=== PATIENT | male | born 1955 | race Caucasian/White ===

== ENCOUNTER 2024-02-06 10:07 | Outpatient (AMB) | payer MEDICARE, SELFPAY ==
--- NOTE | 2024-02-06 10:09 | MHC.OFFVIS ---
Vital Signs 02/06/24 10:19 Height 5 ft 11 in Weight 216 lb 11.43 oz BMI 30.2 BP 110/70 Blood Pressure Location Lt brachial Position Sitting Pulse 49 L Pulse Source Pulse Oximeter Intake Visit Reasons: Ra/ RECORDS RECEIVED Intake Note: Patient present today for RA office visit. 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 Pain in joints improved. He currently feels well. Denies joint swelling. He has minimal joint stiffness that improves with movement in the morning. Denies recent flares or requiring prednisone. He had severe MR and had a clip procedure last sunday. He feels improved SOB. Cardiology started Entresto and plavix. No recent infections. Plans to see pulmonology Dr. Whitfield next year. [facility] Surgical History (Updated 02/06/24 @ 10:26 by CASSIE Bunch) History of mitral valve repair Family History (Updated 02/06/24 @ 10:28 by CASSIE Bunch) Mother Colon cancer Rheumatoid arthritis Father Heart attack Social History (Updated 02/06/24 @ 10:28 by CASSIE Bunch) Alcohol intake: current Alcohol intake frequency: holidays/special occasions only Patient Tobacco Use Status: Never used Tobacco Physical Exam Vital Signs: Last Vital Signs Pulse 49 L 02/06/24 10:19 BP 110/70 02/06/24 10:19 BMI result Body Mass Index 30.2 Const General: healthy appearing and comfortable Resp Auscultation: rales on the right in the mid lung puckett and on the left in the mid lung pucektt Cardio Rate: regular rate Skin General skin exam: no rashes or lesions noted Extrem Other: No joint tenderness. No joint swelling. Ulnar deviations R MCP>L. Haberden's nodes present. Hip and knee ROM was not evaluated due to recent cardiac cath procedure requiring bilateral femoral access. Results Reviewed Results Reviewed: Labs from 01/2024 CBC and creatinine wnl. Assessment & Plan Assessment & Plan (1) Rheumatoid arthritis in remission: Comment: In remission on Truxima every 4 months. Code(s): M06.9 - Rheumatoid arthritis, unspecified Category: Medical Plan: Continue Truxima 1g on day 0 and 14 every 4 months. Need to process PA. Lab rx given to patient to have labs done at [facility] per patient's preference 1 week prior to next Truxima in [facility] 2023. (2) ILD (interstitial lung disease): Comment: On OFEV and Truxima. Stable. Code(s): J84.9 - Interstitial pulmonary disease, unspecified Category: Medical Plan: Continue Truxima 1g on day 0 and 14 every 4 months Follow-up with pulmologist Dr. Whitfield [facility] in 2024. Plan . Orders: Orders Alanine Aminotransferase 1 Month M06.9 - Rheumatoid arthritis, unspecified C Reactive Protein 1 Month M06.9 - Rheumatoid arthritis, unspecified Aspartate Amino Transferase 1 Month M06.9 - Rheumatoid arthritis, unspecified Erythrocyte Sedimentation Rate 1 Month M06.9 - Rheumatoid arthritis, unspecified Creatinine 1 Month M06.9 - Rheumatoid arthritis, unspecified Complete Blood Count Auto Diff 1 Month M32.9 - Systemic lupus erythematosus, unspecified Coding Level of Care Code Est Pt Level 4 (49587) Complex EM visit Add On G2211 Diagnoses Rheumatoid arthritis in remission M06.9 ILD (interstitial lung disease) J84.9
[2024-02-06 10:19] VITALS: BP 110/70; PULSE 49; BMI 30.2
== END 2024-02-06 11:12 | disposition home or self-care (01) ==
PROVIDERS: PCP Internal Medicine; Visit Provider Internal Medicine Rheumatology
DX: M06.9 Rheumatoid arthritis, unspecified (principal); J84.9 Interstitial pulmonary disease, unspecified
CPT/HCPCS: 99214; G2211

== ENCOUNTER → 2024-02-06 10:07 | Outpatient (BNVA) | payer MEDICARE, SELFPAY | PROVIDERS: PCP Internal Medicine; Visit Provider Internal Medicine Rheumatology | DX: M06.9 Rheumatoid arthritis, unspecified (principal); M32.9 Systemic lupus erythematosus, unspecified; J84.9 Interstitial pulmonary disease, unspecified; Z79.899 Other long term (current) drug therapy | CPT/HCPCS: 99212 ==

== ENCOUNTER 2024-05-08 09:29 | Outpatient (AMB) | payer MEDICARE, SELFPAY ==
--- NOTE | 2024-05-08 09:47 | A.OFFVIS_ITS ---
Vital Signs 05/08/24 09:48 Height 5 ft 11 in Weight 208 lb 8 oz BMI 29.1 BP 110/70 Blood Pressure Location Lt brachial Position Sitting Pulse 66 Pulse Source Pulse Oximeter Pulse Oximetry (%) 95 Oxygen Delivery Method Room Air Intake Visit Reasons: RA Intake Note: Patient presents follow up RA Allergies sulfasalazine Allergy (Mild, Verified 05/08/24 09:51) Unknown HPI HPI RA: Details: Minimal morning stiffness. No joint swelling or pain. No recent infections. He feels great. He has been exercising more regularly without discomfort or dyspnea. He reports that his oxygen level has not dropped. He is currently experiencing diarrhea, which was started last 11/13/2023 around the time that he was started on atorvastatin. He recently had a visit with his traffic coordinator who recommended to hold atorvastatin. 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 from 150 mg b.i.d. and most recently decreased it to 100 mg daily to see if it will reduce his diarrhea. [facility] Surgical History History of mitral valve repair Family History Mother Colon cancer Rheumatoid arthritis Father Heart attack Social History Alcohol intake: current Alcohol intake frequency: holidays/special occasions only Patient Tobacco Use Status: Never used Tobacco Review of Systems Const All systems reviewed & are unremarkable except as noted in HPI and below Physical Exam Vital Signs: Last Vital Signs Pulse 66 05/08/24 09:48 BP 110/70 05/08/24 09:48 Pulse Ox 95 05/08/24 09:48 Oxygen Delivery Method Room Air 05/08/24 09:48 BMI result Body Mass Index 29.1 Const Other: General: Comfortable CVS: RRR Respiratory: Inspiratory crackles mid lung puckett. Decreased breath sounds Skin: No lesions seen MSK: No tenderness of any joints. Good range of motion of upper extremities and lower extremities. No synovitis. Assessment & Plan Assessment & Plan (1) Rheumatoid arthritis in remission: Comment: Seropositive (CCP and RF). In remission on Truxima every 4 months. He recently had infusions at [facility] and has a payment of over a 1000 dollars for his last two infusions from 02/2024, which is not affordable for patient. [facility] is in network for patient. He previously never had co-payments on Truxima. Rheumatology history: Contraindication to methotrexate and leflunomide due to interstitial lung disease. Failed hydroxychloroquine 05/17/2020 to 02/2022 and Mycophenolate mofetil 04/2021 to 09/2021. Low-dose prednisone benefits inflammatory arthritis, fatigue and dyspnea. Truxima 1g Day 0 and Day 14 started 09/2021 initially every 6 months then increased frequency to every 4 months for control of inflammatory arthritis. Truxima biosimilar to Rituximab is indicated for rheumatoid arthritis and interstitial lung disease associated with rheumatoid arthritis. Code(s): M06.9 - Rheumatoid arthritis, unspecified Category: Medical Plan: Continue Truxima 1g on day 0 and 14 every 4 months. He will obtain labs 1 week prior to Truxima infusions. He does not require labs on the day of Truxima infusions. Drug monitoring on Truxima is due every 3-4 months. My staff will look further into why patient had a payment for his most recent Truxima infusions RTC 3 months (2) ILD (interstitial lung disease): Comment: On OFEV and Truxima. Stable. Code(s): J84.9 - Interstitial pulmonary disease, unspecified Category: Medical Plan: Continue Truxima 1g on day 0 and 14 every 4 months Follow-up with pulmologist Dr. Roseann YOUNG for ILD monitoring/Ofev. I have requested him to communicate with pulmonology office to have PFTs done as it has been over a year per patient. Plan . 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) use of unspecified immunomodulators and immunosuppressants Creatinine 2 Months Z79.60 - long-term (current) use of unspecified immunomodulators and immunosuppressants Aspartate Amino Transferase 2 Months Z79.60 - local company intermodal truck driver (current) use of unspecified immunomodulators and immunosuppressants C Reactive Protein 2 Months M06.9 - Rheumatoid arthritis, unspecified Erythrocyte Sedimentation Rate 2 Months M06.9 - Rheumatoid arthritis, unspecified Coding Level of Care Code Est Pt Level 4 (63213) Complex EM visit Add On G2211 Diagnoses Rheumatoid arthritis in remission M06.9 ILD (interstitial lung disease) J84.9
[2024-05-08 09:48] VITALS: BP 110/70; PULSE 66; O2SAT 95; BMI 29.1
--- OUTSIDE RECORDS SUMMARY | 2024-05-08 09:53 | XMS_ITS | Continuity of Care Document ---
Author Organization [employer] Address [address] [place] [id number]- Support Name Relationship Address Phone JUNIOR, BABAK Personal Relationship Unknown Unavailable JUNIOR, BABAK Personal Relationship Unknown Unavailable JUNIOR, BABAK Personal Relationship Unknown Unavailable JUNIOR, BABAK Personal Relationship Unknown Unavailable JUNIOR, BABAK Personal Relationship Unknown Unavailable JUNIOR, BBAAK Personal Relationship Unknown Unavailable JUNIOR, BABAK Personal Relationship Unknown Unavailable JUNIOR, BABAK Personal Relationship Unknown Unavailable JUNIOR, BABAK spouse Unknown Unavailab le JNUIOR, BABAK Personal Relationship Unknown Unavailable JUNIOR, BABAK Personal Relationship Unknown Unavailable JUNIOR, BABAK Personal Relationship Unknown Unavailable JUNIOR, BABAK G Personal Relationship Unknown Unavailable JUNIOR, BABAK Personal Relationship Unknown Unavailable JUNIOR, BABAK Personal Relationship Unknown Unavailable JUNIOR, BABAK Personal Relationship Unknown Unavailable JUNIOR, BABAK Personal Relationship Unknown Unavailable JUNIOR, BABAK G Personal Relationship Unknown Unavailable JUINOR, BABAK Personal Relationship Unknown Unavailable JUNIOR, BABAK G Personal Relationship Unknown Unavailable JUNIOR, BABAK Personal Relationship Unknown Unavailable JUNIOR, BABAK Personal Relationship Unknown Unavailable JUNIOR, BABAK Personal Relationship Unknown Unavailable JUNIOR, BABAK Personal Relationship Unknown Unavailable JUNIOR, BABAK Personal Relationship Unknown Unavailable JUNIOR, BABAK G Personal Relationship Unknown Unavailable JUNIOR, BABAK Personal Relationship Unknown Unavailable JUNIOR, BABAK Personal Relationship Unknown Unavailable JUNIOR, BABAK Personal Relationship Unknown Unavailable JUNIOR, BABAK G Personal Relationship Unknown Unavailable JUNIOR, BABAK Personal Relationship Unknown Unavailable JUNIOR, BABAK Personal Relationship Unknown Unavailable JUNIOR, BABAK Personal Relationship Unknown Unavailable JUNIOR, BABAK Personal Relationship Unknown Unavailable JUNIOR, BABAK Personal Relationship Unknown Unavailable JUNIOR, BABAK Personal Relationship Unknown Unavailable JUNIOR, BABAK Personal Relationship Unknown Unavailable JUNIOR, BABAK Personal Relationship Unknown Unavailable JUNIOR, BABAK Personal Relationship Unknown Unavailable Care Team Providers Care Cyber Reverse Engineer Name Role Phone Murray Richardson MD Primary Care Physician [phone] Encounter [facility] [place] [place] [id number] Date(s): 02/20/24 - 04/28/[address] [address] Encounter Diagnosis Nonrheumatic mitral valve disorder, unspecified(Final) - Presence of prosthetic heart valve(Final) - Discharge Disposition: A-D/C Home Attending Physician: David Cortes MD Admitting Physician: David Cortes MD Referring Physician: David Cortes MD Encounter Type: Disch Recurring OP Allergies, Adverse Reactions, Alerts No Known Medication Allergies Immunizations Given and Recorded Vaccine Date Status Refusal Reason SARS-CoV-2(COVID-19)mRNA-LNP vac([id number]) 02/26/23 Recorded RSV vaccine preF3, recombinant 12/18/22 Recorded influenza virus vaccine, inactivated 12/18/22 Zachary rded influenza virus vaccine, inactivated 12/05/21 Zachary rded influenza virus vaccine, inactivated 12/07/20 Zachary rded influenza virus vaccine, inactivated 03/11/18 Zachary rded influenza virus vaccine, inactivated 01/05/17 Zachary rded influenza virus vaccine, inactivated 12/23/14 Zachary rded [id number] 12y+ bivalent booster vax 12/05/21 Recorded SARS-CoV-2 (COVID-19) mRNA BNT-162b2 vac 11/18/20 Recorded SARS-CoV-2 (COVID-19) mRNA BNT-162b2 vac 05/26/20 Recorded SARS-CoV-2 (COVID-19) mRNA BNT-162b2 vac 05/05/20 Recorded SARS-CoV-2 (COVID-19) mRNA-1273 vaccine 11/08/20 R ecorded zoster vaccine, inactivated 03/12/19 Recorded pneumococcal 23-valent vaccine 11/05/13 Given Medications aspirin 81 mg oral delayed release tablet 81 mg, 1, tablet, By Mouth, Daily, # 90 tablet, Refills 0, Tot. Refills 0, Maintenance, 09/26/23 3:24:00 PM EDT, Route to Pharmacy Electronically, [facility] #[id number], Partial fill upon patientrequest if the prescription is for a schedule II opioid drug., 180, cm, 09/26/23 13:59:00 EDT, Height, 97, kg, 06/18/23 8:07:00 EDT, Dry Weight Start Date: 09/26/23 Status: Ordered Quantity: 90.0 Unit: tablet Repeat number: 1 atorvastatin 80 mg oral tablet 1 tablet = 80 mg, By Mouth, Daily, stop simvastatin, # 90 tablet, 3 Refills, Maintenance, 12/17/23 10:30:00 AM EDT, Tablet, [facility] #[id number], Partial fill upon patient request if the prescription isfor a schedule II opioid drug., 180, cm, 12/13/23 12:05:00 EDT, Height, 97.5, kg, 12/13/23 11:58:00EDT, Dry Weight Start Date: 12/17/23 Status: Ordered Quantity: 90.0 Unit: tablet Repeat number: 4 calcium carbonate 600 mg oral tablet 1 tablet = 600 mg, By Mouth, Daily, 0 Refills, Maintenance, 06/18/23 8:19:00 AM EDT, Partial fill upon patient request if the prescription is for a schedule II opioid drug. Start Date: 06/18/23 Status: Ordered Repeat number: 1 Claritin 10 mg oral tablet 1 tablet = 10 mg, By Mouth, Daily, 0 Refills, Maintenance, 11/18/12 7:31:01 AM EDT Start Date: 11/18/12 Status: Ordered Repeat number: 1 Flomax 0.4 mg oral capsule 0.4 mg, 1, capsule, By Mouth, Daily, # 30 capsule, Refills 0, Maintenance, 02/27/19 9:35:15 AM EST Start Date: 02/27/19 Status: Ordered Quantity: 30.0 Unit: capsule Repeat number: 1 Flonase 50 mcg/inh nasal spray 2 sprays, Daily, 0 Refills, Maintenance, 07/10/19 1:22:00 PM EDT Start Date: 07/10/19 Status: Ordered Repeat number: 1 Lasix 40 mg oral tablet 40 mg, 1, tablet, By Mouth, Daily, # 90 tablet, Refills 1, Tot. Refills 1, Maintenance, 02/04/24 7:29:00 AM EST, Route to Pharmacy Electronically, [facility] #[id number], Partial fill upon patient request if the prescription is for a schedule II opioid drug., 180.34, cm, 02/02/24 7:33:00 EST, Height, 97.5, kg, 02/01/24 18:06:00 EST, Dry Weight Start Date: 02/04/24 Status: Ordered Quantity: 90.0 Unit: tablet Repeat number: 2 metoprolol 25 mg oral tablet 25 mg, 1, tablet, By Mouth, Daily, extendeed release, # 90 tablet, Refills 1, Tot. Refills 1, Maintenance, 04/09/24 4:15:00 PM EST, Route to Pharmacy Electronically, [facility], Partial fill upon patient request if the prescription is for a schedule II opioid drug., 180.34, cm, 04/08/24 9:16:00 EST, Height, 97.5, kg, 02/01/24 18:06:00 EST, Dry Weight Start Date: 04/09/24 Status: Ordered Quantity: 90.0 Unit: tablet Repeat number: 2 Ofev 100 mg oral capsule 1 capsule = 100 mg, By Mouth, Every 12 hours, with food, # 60 capsule, 5 Refills, Maintenance, 04/08/24 9:42:00 AM EST, Capsule, [facility], Partial fill upon patient request if the prescription is for a schedule II opioid drug., 180.34, cm, 04/08/24 9:16:00 EST, Height, 97.5, kg, 18:06:00 EST, Dry Weight Start Date: 04/08/24 Stop Date: 10/05/24 Status: Ordered Quantity: 60.0 Unit: capsule Repeat number: 6 pantoprazole 40 mg oral delayed release tablet 1 tablet = 40 mg, By Mouth, Daily, # 90 tablet, 3 Refills, Maintenance, 12/06/23 4:51:00 PM EDT, EC Tablet, 180, cm, 12/06/23 14:39:00 EDT, Height, 97.5, kg, 12/06/23 14:39:00 EDT, Dry Weight Start Date: 12/06/23 Stop Date: 11/30/24 Status: Ordered Quantity: 90.0 Unit: tablet Repeat number: 4 Plavix 75 mg oral tablet 75 mg, 1, tablet, By Mouth, Daily, for 3 months, # 90 tablet, Refills 0, Tot. Refills 0, Maintenance, 02/01/24 5:22:00 PM EST, Route to Pharmacy Electronically, [facility], Partial fill upon patient request if the prescription is for a schedule II opioid drug., 180.34, cm, 02/01/24 17:1 9:00 EST, Height, 97.5, kg, 12/13/23 11:58:00 EDT, Dry Weight Start Date: 02/01/24 Status: Ordered Quantity: 90.0 Unit: tablet Repeat number: 1 sacubitril-valsartan 49 mg-51 mg oral tablet 1 tablet, By Mouth, 2 times a day, # 180 tablet, 0 Refills, Maintenance, 04/09/24 4:15:00 PM EST, [facility], Partial fill upon patient request if the prescription is for a schedule II opioiddrug., 1 tablet By Mouth 2 times a day, 180.34, cm, 04/08/24 9:16:00 EST, Height, 97.5, kg, 02/01/24 18:06:00 EST, Dry Weight Start Date: 04/09/24 Status: Ordered Quantity: 180.0 Unit: tablet Repeat number: 1 Truxima Truxima, 0 Refills, Maintenance, Infusion, 04/18/22 9:23:00 AM EST Start Date: 04/18/22 Status: Ordered Repeat number: 1 Vitamin B12 0 Refills, Maintenance, 11/07/23 3:00:00 PM EDT, Partial fill upon patient request if the prescription is for a schedule II opioid drug. 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 uses a vape pen daily.. Sex Sex Representation Male (finding) Implantable Device List Procedure Provider Procedure Date Device Type Site Repair Ectropian Bilateral William Rios MD 08/09/17 Unknown Eye Left Device Identifier Serial Number Lot or Batch Number Manufacturing Date Expiration Date Distinct Identification Code MRI Safety Implantable Status Assigning Authority Unknown [id number] Unknown 11/23/18 Unknown Unknown Active Unknown Note * Event Display: Cardiac Rehab Telemetry Report Authored Date: * Event Display: Cardiac Rehab Telemetry Report Authored Date: * Event Display: Cardiac Rehab Telemetry Report Authored Date: Patient Care team information Care Team Personnel Name: Shona Trejo NP Position: [facility] PCO Associate Professional Member Role: Primary Care Nurse Address: [address] [place] [id number] Telecom: Name: Irasema Puckett RN Position: [facility] SN RN Member Role: Primary Care Nurse Name: Kerrie Francis RN Position: [facility] RN Member Role: Primary Care Nurse Name: Jose Nowak RN Position: [facility] RN Member Role: Primary Care Nurse Name: Murray Richardson MD Position: [facility] Outreach Member Role: PCP Address: [address] [place] [id number] Telecom: Name: Nilay Arvizu RN Position: [facility] RN Member Role: Primary Care Nurse Care Team Related Persons Name: BABAK PACHECO Insurance Providers Guarantor name: JOSEPHINE PACHECO Health Plan Information #: 1 Payer: [facility] MEDICARE ADV PPO Member Number: [id number] Policy Number: NA Group Number: [id number] Health Plan Information #: 2 Payer: [facility] MEDICARE ADV PPO Member Number: [id number] Policy Number: NA Group Number: [id number]
--- OUTSIDE RECORDS SUMMARY | 2024-05-08 09:54 | XMS_ITS | Continuity of Care Document ---
Author Organization [facility] Address [address] [facility] [address] [place] [address] Insurance Providers Payer Plan Claims Address Claims Phone Policy Number Group Number Relation Employer Guarantor Name Guarantor Guarantor Address Guarantor Phone [facility] MEDICA RE FFS [facility] MEDIC ARE FFS [facility] MEDICARE ADVANTAG E, [address] [address], [place] [address] tel:[phone] Self Shahram Torrezau [address], [address], [place] [address] [place] [id number] Self Shahram Jean-Baptiste [address], [address], [place] [id number] Problems Condition ICD9 code ICD10 code SNOMED code Start Date End Date S tatus Encounter for screening for other metabolic disorders Z13.228 Results Test Value / Unit Interpretation Reference Ran Comp. Metabolic Panel ([id number]]?Collected: 01/24/2024 04:13 PM?Specimen Received: 01/24/2024 05:00 AM?Source: [facility] Glucose [864174] 105 mg/dL H 70-99 mg/dL BUN [464840] 10 mg/dL 8-27 mg/dL Creatinine [691789] 1.09 mg/dL 0.76-1.2 7 mg/dL eGFR [908020] 73 mL/min/1.73 >59 mL/min/1 .73 BUN/Creatinine Ratio [066411] 9 L 10-24 Sodium [108492] 145 mmol/L H 134-144 mmol /L Potassium [535074] 4.9 mmol/L 3.5-5.2 m mol/L Chloride [007737] 104 mmol/L 96-106 mmo l/L Carbon Dioxide, Total [112095] 19 mmol/L L 20-29 mmol/L Calcium [216973] 9.0 mg/dL 8.6-10.2 mg /dL Protein, Total [815971] 6.6 g/dL 6.0- 8.5 g/dL Albumin [799395] 4.1 g/dL 3.9-4.9 g/d L Globulin, Total [149822] 2.5 g/dL 1.5 -4.5 g/dL Bilirubin, Total [547121] 0.6 mg/dL 0. 0-1.2 mg/dL Alkaline Phosphatase [724142] 206 IU/L H 44-121 IU/L AST (SGOT) [100371] 56 IU/L H 0-40 IU/ L ALT (SGPT) [194882] 72 IU/L H 0-44 IU/ L Lipid Panel[[id number]]?Collected: 01/24/2024 04:13 PM?Specimen Received: 01/24/2024 05:00 AM?Source: [facility] Cholesterol, Total [499898] 143 mg/dL 100-199 mg/dL Triglycerides [565062] 158 mg/dL H 0-149 mg/dL HDL Cholesterol [749036] 37 mg/dL L >39 mg/dL VLDL Cholesterol Berry [923174] 27 mg/dL 5-40 mg/dL LDL Chol Calc (NIH) [595632] 79 mg/dL 0-99 mg/dL Hemoglobin A1c[601493]?Collected: 01/24/2024 04:13 PM?Specimen Received: 01/24/2024 05:00 AM?Source: [facility] Hemoglobin A1c [662303] 6.5 % H 4.8- 5.6 % . Prediabetes: 5.7 - 6.4 Stephanie betes: >6.4 Glycemic control for adults with diabetes: 7.0 Allergies, adverse reactions, alerts No known allergies and adverse reactions Medications No administered medications reported Vital Signs No vital signs reported Social History No smoking Hx information available
--- OUTSIDE RECORDS SUMMARY | 2024-05-08 09:54 | XMS_ITS | Continuity of Care Document ---
Author Organization [facility] Address [facility] [place] [address]- Support Name Relationship Address Phone JUNIOR, BABAK Personal Relationship Unknown Unavailable JUNIOR, BABAK Personal Relationship Unknown Unavailable JUNIOR, BABAK Personal Relationship Unknown Unavailable JUNIOR, BABAK Personal Relationship Unknown Unavailable JUNIOR, BABAK Personal Relationship Unknown Unavailable JUNIOR, BABAK Personal Relationship Unknown Unavailable JUNIOR, BABAK Personal Relationship Unknown Unavailable JUNIOR, BABAK Personal Relationship Unknown Unavailable JUNIOR, BABAK spouse Unknown Unavailab le JUNIOR, BABAK Personal Relationship Unknown Unavailable JUNIOR, [...] Relationship Unknown Unavailable Care Team Providers Care Dam Tender Assistant Name Role Phone Dylan VANESSA, Murray Primary Care Physician [phone] Encounter [facility] [id number] Date(s): 01/30/24 - 04/26/24 [facility] [address] [place] [address] Attending Physician: David Cortes MD Admitting Physician: David Cortes MD Referring Physician: Prosper Young MD Encounter Type: Pre-OutPatient One Time Allergies, Adverse Reactions, Alerts No Known Medication Allergies Immunizations Given and Recorded Vaccine Date Status Refusal Reason SARS-CoV-2(COVID-19)mRNA-LNP vac([id number]) 02/26/23 Recorded RSV vaccine preF3, recombinant 12/18/22 Recorded influenza virus vaccine, inactivated 12/18/22 Zachary rded influenza virus vaccine, inactivated 12/05/21 Zachary rded influenza virus vaccine, inactivated 12/07/20 Zachary rded influenza virus vaccine, inactivated 03/11/18 Zachary rded influenza virus vaccine, inactivated 01/05/17 Zachary rded influenza virus vaccine, inactivated 12/23/14 Zachary rded [id number] 12y+ bivalent booster vax 12/05/21 Recorded SARS-CoV-2 [...] 3:24:00 PM EDT, [id number], Partial fill upon patientrequest if the prescription [...] Refills, Maintenance, 12/17/23 10:30:00 AM EDT, Tablet, [facility] #[id number], Partial fill upon patient request if the [...] 7:29:00 AM EST, Route to Pharmacy Electronically, [facility]/pharmacy #[id number], Partial fill upon patient request if [...] Refills, Maintenance, 04/08/24 9:42:00 AM EST, Capsule, [facility], Partial fill upon patient request [...] 5:22:00 PM EST, Route to Pharmacy Electronically, [facility], Partial fill upon patient request if [...] MRI Safety Implantable Status Assigning Authority Unknown [id number] Unknown 11/23/18 Unknown Unknown Active Unknown Patient Care team information Care Team Personnel Name: Shona Trejo NP Position: [facility] PCO Associate Professional Member Role: Primary Care Nurse Address: [address] [place] [id number] Telecom: Name: Irasema Puckett RN Position: [facility] SN RN Member Role: Primary Care Nurse Name: Kerrie Francis RN Position: [facility] RN Member Role: Primary Care Nurse Name: Jose Nowak RN Position: [facility] RN Member Role: Primary Care Nurse Name: Murray Richardson MD Position: [facility] Outreach Member Role: PCP Address: [address] [place] [address], [address] [address]: Name: Nilay Arvizu RN Position: [facility] RN Member Role: Primary Care Nurse Care Team Related Persons Name: BABAK PACHECO Insurance Providers Guarantor name: JOSEPHINE PACHEOC Health Plan Information #: 1 Payer: [facility] MEDICARE ADV PPO Member Number: [id number] Policy Number: NA Group Number: [id number] Health Plan Information #: 2 Payer: [facility] MEDICARE ADV PPO Member Number: [id number] Policy Number: NA Group Number: [id number]
== END 2024-05-08 10:21 | disposition home or self-care (01) ==
PROVIDERS: PCP Internal Medicine; Visit Provider Internal Medicine Rheumatology
DX: M06.9 Rheumatoid arthritis, unspecified (principal); J84.9 Interstitial pulmonary disease, unspecified
CPT/HCPCS: 99214; G2211

== ENCOUNTER → 2024-05-08 09:29 | Outpatient (BNVA) | payer MEDICARE, SELFPAY | PROVIDERS: PCP Internal Medicine; Visit Provider Internal Medicine Rheumatology | DX: M06.9 Rheumatoid arthritis, unspecified (principal); J84.9 Interstitial pulmonary disease, unspecified | CPT/HCPCS: 99212 ==

== ENCOUNTER 2024-07-01 10:26 | Outpatient (REF) | payer MEDICARE, SELFPAY ==
[2024-07-01 18:41] LABS: MANUAL DIFF FLAG NO
[2024-07-01 18:54] LABS: Basophils Absolute Auto 0.1 X10*3/uL (0.0-0.2); Eosinophils Absolute Auto 0.4 X10*3/uL (0.0-0.4); Eosinophils Percent Auto 5.8 % (0-4); Hematocrit 50.1 % (42.0-52.0); Hemoglobin 16.2 g/dl (14.0-18.0); Imm Gran Abs Auto 0.02 X10*3/uL (0.00-0.03); Imm Gran Pct Auto 0.3 % (0.0-0.4); Lymphocytes Absolute Auto 1.3 X10*3/uL (1.2-4.9); Lymphocytes Percent Auto 19.4 % (20-40); Mean Corpuscular HGB Conc 32.3 g/dl (31.0-36.0); Mean Corpuscular Hemoglobin 30.6 pg (27.0-33.0); Mean Corpuscular Volume 94.5 fL (80.0-98.0); Mean Platelet Volume 9.7 fL (9.4-12.4); Monocytes Absolute Auto 0.7 X10*3/uL (0.1-1.2); Monocytes Percent Auto 10.8 % (2-11); Neutrophils Absolute Auto 4.3 x10*3/uL (2.0-8.3); Neutrophils Percent Auto 62.7 % (45-73); Platelet Count 279 X10*3/uL (160-400); White Blood Count 6.9 X10*3/uL (4.8-10.8)
[2024-07-01 19:06] LABS: Alanine Aminotransferase 25 U/L (0-40); Aspartate Amino Transferase 28 U/L (5-37); C Reactive Protein 0.34 mg/dL (< or = 0.50); Estimated Glomerular Filt Rate > 60
[2024-07-01 19:38] LABS: Erythrocyte Sedimentation Rate 4 MM/HR (0-15)
== END 2024-07-01 10:27 | disposition home or self-care (01) ==
LOC: HO.HKASLDS 10:26
PROVIDERS: Visit Provider Internal Medicine Rheumatology
DX: M06.9 Rheumatoid arthritis, unspecified (principal); Z79.60 Long term (current) use of unspecified immunomodulators and immunosuppressants
CPT/HCPCS: 36415; 82565; 84450; 84460; 85025; 85652; 86140

== ENCOUNTER 2024-08-06 10:07 | Outpatient (AMB) | payer MEDICARE, SELFPAY ==
--- NOTE | 2024-08-06 10:09 | MHC.OFFVIS ---
Vital Signs 08/06/24 10:10 Height 5 ft 11 in Weight 208 lb 12.444 oz BMI 29.1 BP 140/80 H Blood Pressure Location Rt brachial Position Sitting Pulse 68 Pulse Source Pulse Oximeter Pulse Oximetry (%) 98 Oxygen Delivery Method Room Air Intake Visit Reasons: 3 Months Intake Note: Patient presents follow up RA. Allergies sulfasalazine Allergy (Mild, Verified 08/06/24 10:10) Unknown HPI HPI 3 Months: Details: No morning stiffness. No joint pain or swelling. He experiences increased shoulder pain and thumb pain before his infusion, which resolves after he receives rituximab. No infections. PFSH Surgical History History of mitral valve repair Family History Mother Colon cancer Rheumatoid arthritis Father Heart attack Social History Alcohol intake: current Alcohol intake frequency: holidays/special occasions only Patient Tobacco Use Status: Never used Tobacco Physical Exam Vital Signs: Last Vital Signs Pulse 68 08/06/24 10:10 BP 140/80 H 08/06/24 10:10 Pulse Ox 98 08/06/24 10:10 Oxygen Delivery Method Room Air 08/06/24 10:10 BMI result Body Mass Index 29.1 Const Other: General: Comfortable CVS: RRR Respiratory: Inspiratory crackles mid lung puckett. Decreased breath sounds Skin: No lesions seen MSK: No tenderness of any joints. Good range of motion of upper extremities and lower extremities. No synovitis. Assessment & Plan Assessment & Plan (1) Rheumatoid arthritis in remission: Comment: Seropositive (CCP and RF). In remission on Truxima every 4 months. Rheumatology history: Contraindication to methotrexate and leflunomide due to interstitial lung disease. Failed hydroxychloroquine 05/17/2020 to 02/2022 and Mycophenolate mofetil 04/2021 to 09/2021. Low-dose prednisone benefits inflammatory arthritis, fatigue and dyspnea. Truxima 1g Day 0 and Day 14 started 09/2021 initially every 6 months then increased frequency to every 4 months for control of inflammatory arthritis. Truxima biosimilar to Rituximab is indicated for rheumatoid arthritis and interstitial lung disease associated with rheumatoid arthritis. Code(s): M06.9 - Rheumatoid arthritis, unspecified Category: Medical Plan: Continue Truxima 1g on day 0 and 14 every 4 months. Labs for disease and drug monitoring on high-risk medication up-to-date 06/2024. He will obtain labs 1 week prior to Truxima infusions. Drug monitoring on Truxima is due every 3-4 months. RTC 3 months (2) ILD (interstitial lung disease): Comment: On OFEV prescribed by Dr. Francisco and Andrea. Stable. Code(s): J84.9 - Interstitial pulmonary disease, unspecified Category: Medical Plan: Continue Truxima 1g on day 0 and 14 every 4 months Follow-up with pulmologist Dr. Francisco [facility] for ILD monitoring/Ofev management in November. I have requested him to communicate with pulmonology office to have PFTs done prior to his follow-up appointment. I recommend PFTs 6 months to yearly for monitoring of ILD while on treatment. Plan . Orders: Orders Alanine Aminotransferase 1 Month J84.9 - Interstitial pulmonary disease, unspecified, M06.9 - Rheumatoid arthritis, unspecified C Reactive Protein 1 Month J84.9 - Interstitial pulmonary disease, unspecified, M06.9 - Rheumatoid arthritis, unspecified Complete Blood Count Man Dif 1 Month J84.9 - Interstitial pulmonary disease, unspecified, M06.9 - Rheumatoid arthritis, unspecified Aspartate Amino Transferase 1 Month J84.9 - Interstitial pulmonary disease, unspecified, M06.9 - Rheumatoid arthritis, unspecified Erythrocyte Sedimentation Rate 1 Month J84.9 - Interstitial pulmonary disease, unspecified, M06.9 - Rheumatoid arthritis, unspecified Creatinine 1 Month J84.9 - Interstitial pulmonary disease, unspecified, M06.9 - Rheumatoid arthritis, unspecified Coding Level of Care Code Est Pt Level 4 (51138) Complex EM visit Add On G2211 Diagnoses Rheumatoid arthritis in remission M06.9 ILD (interstitial lung disease) J84.9
[2024-08-06 10:10] VITALS: BP 140/80; PULSE 68; O2SAT 98; BMI 29.1
--- OUTSIDE RECORDS SUMMARY | 2024-08-06 11:05 | XMS_ITS | Continuity of Care Document ---
Author Organization [facility] Address [address] [facility] [address] [place] [address] Insurance Providers Payer Plan Claims Address Claims Phone Policy Number Group Number Relation Employer Guarantor Name Guarantor Guarantor Address Guarantor Phone [facility] MEDICA RE FFS [place] HCARE MEDIC ARE FFS [facility] MEDICARE ADVANTAG E, [address] [address], [place] [address] tel:[phone] Self Shahram Heck Jerilyn [address], [address], [place] [address] [place] [id number] Self Shahram Jean-Baptiste [address], [address], [place] [address] Problems Condition ICD9 code ICD10 code SNOMED code Start Date End Date S tatus Encounter for screening for other metabolic disorders Z13.228 Results Test Value / Unit Interpretation Reference Ran Comp. Metabolic Panel (14)[3 [id number]]?Collected: 01/24/2024 04:13 PM?Specimen Received: 01/24/2024 05:00 AM?Source: [facility] Glucose [028222] 105 mg/dL H 70-99 mg/dL BUN [518706] 10 mg/dL 8-27 mg/dL Creatinine [094392] 1.09 mg/dL 0.76-1.2 7 mg/dL eGFR [532825] 73 mL/min/1.73 >59 mL/min/1 .73 BUN/Creatinine Ratio [991753] 9 L 10-24 Sodium [444030] 145 mmol/L H 134-144 mmol /L Potassium [421804] 4.9 mmol/L 3.5-5.2 m mol/L Chloride [094727] 104 mmol/L 96-106 mmo l/L Carbon Dioxide, Total [329845] 19 mmol/L L 20-29 mmol/L Calcium [611207] 9.0 mg/dL 8.6-10.2 mg /dL Protein, Total [452008] 6.6 g/dL 6.0- 8.5 g/dL Albumin [593303] 4.1 g/dL 3.9-4.9 g/d L Globulin, Total [602197] 2.5 g/dL 1.5 -4.5 g/dL Bilirubin, Total [868916] 0.6 mg/dL 0. 0-1.2 mg/dL Alkaline Phosphatase [300203] 206 IU/L H 44-121 IU/L AST (SGOT) [540504] 56 IU/L H 0-40 IU/ L ALT (SGPT) [194348] 72 IU/L H 0-44 IU/ L Lipid Panel[021222]?Collected: 01/24/2024 04:13 PM?Specimen Received: 01/24/2024 05:00 AM?Source: [facility] Cholesterol, Total [286668] 143 mg/dL 100-199 mg/dL Triglycerides [881765] 158 mg/dL H 0-149 mg/dL HDL Cholesterol [132259] 37 mg/dL L >39 mg/dL VLDL Cholesterol Berry [396367] 27 mg/dL 5-40 mg/dL LDL Chol Calc (NIH) [135001] 79 mg/dL 0-99 mg/dL Hemoglobin A1c[552431]?Collected: 01/24/2024 04:13 PM?Specimen Received: 01/24/2024 05:00 AM?Source: [facility] Hemoglobin A1c [975497] 6.5 % H 4.8- 5.6 % . Prediabetes: 5.7 - 6.4 Stephanie betes: >6.4 Glycemic control for adults with diabetes: 7.0 Allergies, adverse reactions, alerts No known allergies and adverse reactions Medications No administered medications reported Vital Signs No vital signs reported Social History No smoking Hx information available
== END 2024-08-06 11:18 | disposition home or self-care (01) ==
LOC: HO.RHES 10:08
PROVIDERS: PCP Internal Medicine; Visit Provider Internal Medicine Rheumatology
DX: M06.9 Rheumatoid arthritis, unspecified (principal); J84.9 Interstitial pulmonary disease, unspecified
CPT/HCPCS: 99214; G2211

== ENCOUNTER → 2024-08-06 10:07 | Outpatient (BNVA) | payer MEDICARE, SELFPAY | PROVIDERS: PCP Internal Medicine; Visit Provider Internal Medicine Rheumatology | DX: M06.9 Rheumatoid arthritis, unspecified (principal); J84.9 Interstitial pulmonary disease, unspecified | CPT/HCPCS: 99212 ==

== ENCOUNTER 2024-10-30 08:40 | Outpatient (REF) | payer MEDICARE, SELFPAY ==
--- OUTSIDE RECORDS SUMMARY | 2024-10-30 08:54 | XMS_ITS ---
Author Name [facility] Organization Unknown Care Team Organization Name Specialty Phone Email Start Date End Da te [facility] 10/11/20232023
--- OUTSIDE RECORDS SUMMARY | 2024-10-30 08:54 | XMS_ITS | Continuity of Care Document ---
Author Organization [facility] Address [address] [facility] [address] [place] [address] Insurance Providers Payer Plan Claims Address Claims Phone Policy Number Group Number Relation Employer Guarantor Name Guarantor Guarantor Address Guarantor Phone [facility] MEDICA RE FFS [place] HCARE MEDIC ARE S [facility] MEDICARE ADVANTAG E, [address] [address], [place] [address] tel:[phone] Self Shahram Heck Jerilyn [address], [address], [place] [address] [place] [id number] Self Shahram Jean-Baptiste [address], [address], [place] [address] Problems Condition ICD9 code ICD10 code SNOMED code Start Date End Date S tatus Encounter for screening for other metabolic disorders Z13.228 Results Test Value / Unit Interpretation Reference Ran ge Comp. Metabolic Panel (14)[3 68383] Collected: 01/24/2024 04:13 PM Specimen Received: 01/24/2024 05:00 AM Source: [facility] Glucose [445600] 105 mg/dL H 70-99 mg/dL BUN [237118] 10 mg/dL 8-27 mg/dL Creatinine [589746] 1.09 mg/dL 0.76-1.2 7 mg/dL eGFR [823763] 73 mL/min/1.73 >59 mL/min/1 .73 BUN/Creatinine Ratio [221339] 9 L 10-24 Sodium [430395] 145 mmol/L H 134-144 mmol /L Potassium [086677] 4.9 mmol/L 3.5-5.2 m mol/L Chloride [728565] 104 mmol/L 96-106 mmo l/L Carbon Dioxide, Total [246090] 19 mmol/L L 20-29 mmol/L Calcium [831430] 9.0 mg/dL 8.6-10.2 mg /dL Protein, Total [871045] 6.6 g/dL 6.0- 8.5 g/dL Albumin [746257] 4.1 g/dL 3.9-4.9 g/d L Globulin, Total [315906] 2.5 g/dL 1.5 -4.5 g/dL Bilirubin, Total [932280] 0.6 mg/dL 0. 0-1.2 mg/dL Alkaline Phosphatase [690460] 206 IU/L H 44-121 IU/L AST (SGOT) [334447] 56 IU/L H 0-40 IU/ L ALT (SGPT) [605711] 72 IU/L H 0-44 IU/ L Lipid Panel[944893] Collected: 01/24/2024 04:13 PM Specimen Received: 01/24/2024 05:00 AM Source: [facility] Cholesterol, Total [950905] 143 mg/dL 100-199 mg/dL Triglycerides [087660] 158 mg/dL H 0-149 mg/dL HDL Cholesterol [003363] 37 mg/dL L >39 mg/dL VLDL Cholesterol Berry [153377] 27 mg/dL 5-40 mg/dL LDL Chol Calc (NIH) [295589] 79 mg/dL 0-99 mg/dL Hemoglobin A1c[570373] Collected: 01/24/2024 04:13 PM Specimen Received: 01/24/2024 05:00 AM Source: [facility] Hemoglobin A1c [873395] 6.5 % H 4.8- 5.6 % . Prediabetes: 5.7 - 6.4 Stephanie betes: >6.4 Glycemic control for adults with diabetes: 7.0 Allergies, adverse reactions, alerts No known allergies and adverse reactions Medications No administered medications reported Vital Signs No vital signs reported Social History No smoking Hx information available
--- OUTSIDE RECORDS SUMMARY | 2024-10-30 08:54 | XMS_ITS | Patient Health Record ---
Author Organization [facility] Address [address] [facility] [place] [address] Care Team Providers Care Pick Pulling Machine Operator Name Role Phone Dylan VANESSA, Murray Primary Care Provider Unavail able Doni Mercer Unavailable [phone] Allergies No Known Allergies Reason For Referral No Information Medications Medication SIG (Take, Route, Frequency, Duration) Notes Start Date End Date Status Aspir-81 Active Claritin Active predniSONE 10 MG 1 tablet Orally Once a day; Duration: 30 day(s) Active Simvastatin 40 MG 1 tablet in the even ing Orally Once a day; Duration: 30 day(s) Active Tamsulosin HCl 0.4 MG 1 capsule Orally O nce a day; Duration: 30 day(s) Active Enalapril Maleate 10 MG 1 tablet Orally Once a day; Duration: 30 day(s) Active Flonase Active hydroCHLOROthiazide 25 MG 1 tablet in th e morning Orally Once a day; Duration: 30 day(s) Active Metoprolol Succinate Active Social History Tobacco Use: Social History Observation Description Date Details (start date - stop date) Former Smoker 03/26/1973 - 03/26/2020 Tobacco Use/Smoking Question Answer Notes Are you a: former smoker When did you start smoking? 03/26/1973 When did you stop smoking? 03/26/2020 Additional Findings: Tobacco Non-User Current no n-smoker Alcohol Screen Question Answer Notes Did you have a drink contain ing alcohol in the past year? Yes How often did you have a dri nk containing alcohol in the past year? Monthly or less (1 point) Points 1 Interpretation Negative Tobacco use other than smoking: Question Answer Notes Are you an other tobacco user? No Problems Problem Type SNOMED Code ICD Code Onset Dates Problem Status W/U Status Risk Notes Problem Plantar wart (B07.0) Active confirmed Plan Of Treatment Pending Test Test Name Order Date 11674-Idce Destruction, -05/13/2020 Insurance Providers Payer Name Payer Address Payer Phone Subscriber Number Group Number Insured Name Patient Relationship to Insured Coverage Start Date Coverage End Date [employer] [place] Medicare Advantage [address] [place] [address] [id number] Shahram Jean-Baptiste Self - patient is the insured Medical (General) History Medical History History ICD Code Broken bones Diverticulosis High blood pressure Lung disease Numbness Poor circulation Measles Mumps Chicken pox septicemia CAD Surgical History Surgery Date(Month/Year) neck surgery 1980 Stent placement 2012 vasectomy 1986 deviated septum repair 1976
--- OUTSIDE RECORDS SUMMARY | 2024-10-30 08:54 | XMS_ITS | Continuity of Care Document ---
Author Organization [facility] Address [address] [facility] [address] [place] [address] Insurance Providers Payer Plan Claims Address Claims Phone Policy Number Group Number Relation Employer Guarantor Name Guarantor Guarantor Address Guarantor Phone [facility] MEDICA RE FFS [place] HCARE MEDIC ARE S [facility] MEDICARE ADVANTAG E, [address] [address], [place] [address] tel:[phone] Self Shahram Heck Jerilyn [address], [address], [place] [address] [place] [id number] Self Shahram Jean-Baptiste [address], [address], [place] [address] Problems Condition ICD9 code ICD10 code SNOMED code Start Date End Date S tatus Encounter for screening for other metabolic disorders Z13.228 Results Test Value / Unit Interpretation Reference Ran ge Comp. Metabolic Panel (14)[3 97833] Collected: 01/24/2024 04:13 PM Specimen Received: 01/24/2024 05:00 AM Source: [facility] Glucose [680306] 105 mg/dL H 70-99 mg/dL BUN [382999] 10 mg/dL 8-27 mg/dL Creatinine [759731] 1.09 mg/dL 0.76-1.2 7 mg/dL eGFR [592723] 73 mL/min/1.73 >59 mL/min/1 .73 BUN/Creatinine Ratio [100428] 9 L 10-24 Sodium [919395] 145 mmol/L H 134-144 mmol /L Potassium [075271] 4.9 mmol/L 3.5-5.2 m mol/L Chloride [142257] 104 mmol/L 96-106 mmo l/L Carbon Dioxide, Total [830920] 19 mmol/L L 20-29 mmol/L Calcium [468016] 9.0 mg/dL 8.6-10.2 mg /dL Protein, Total [409211] 6.6 g/dL 6.0- 8.5 g/dL Albumin [535858] 4.1 g/dL 3.9-4.9 g/d L Globulin, Total [065205] 2.5 g/dL 1.5 -4.5 g/dL Bilirubin, Total [823635] 0.6 mg/dL 0. 0-1.2 mg/dL Alkaline Phosphatase [803777] 206 IU/L H 44-121 IU/L AST (SGOT) [341075] 56 IU/L H 0-40 IU/ L ALT (SGPT) [006113] 72 IU/L H 0-44 IU/ L Lipid Panel[022342] Collected: 01/24/2024 04:13 PM Specimen Received: 01/24/2024 05:00 AM Source: [facility] Cholesterol, Total [543402] 143 mg/dL 100-199 mg/dL Triglycerides [748421] 158 mg/dL H 0-149 mg/dL HDL Cholesterol [602765] 37 mg/dL L >39 mg/dL VLDL Cholesterol Berry [001987] 27 mg/dL 5-40 mg/dL LDL Chol Calc (NIH) [804272] 79 mg/dL 0-99 mg/dL Hemoglobin A1c[155089] Collected: 01/24/2024 04:13 PM Specimen Received: 01/24/2024 05:00 AM Source: [facility] Hemoglobin A1c [746251] 6.5 % H 4.8- 5.6 % . Prediabetes: 5.7 - 6.4 Stephanie betes: >6.4 Glycemic control for adults with diabetes: 7.0 Allergies, adverse reactions, alerts No known allergies and adverse reactions Medications No administered medications reported Vital Signs No vital signs reported Social History No smoking Hx information available
[2024-10-30 13:26] LABS: Baso%MD 2.2 %; Eos%MD 11.9 %; Hematocrit 47.2 % (42.0-52.0); Hemoglobin 15.8 g/dl (14.0-18.0); IG%MD 0.2 %; Lymph%MD 42.2 %; Mean Corpuscular HGB Conc 33.5 g/dl (31.0-36.0); Mean Corpuscular Hemoglobin 30.3 pg (27.0-33.0); Mean Corpuscular Volume 90.6 fL (80.0-98.0); Mono%MD 29.4 %; NRBC Abs Auto 0.000 X10*3/uL (0.0-0.012); NRBC Pct Auto 0.0 /100WBC (0.0-0.2); Neut%MD 14.1 %; Platelet Count 265 X10*3/uL (160-400); Red Blood Count 5.21 X10*6/uL (4.60-5.80); White Blood Count 4.1 X10*3/uL (4.8-10.8)
[2024-10-30 13:51] LABS: Alanine Aminotransferase 17 U/L (0-40); Aspartate Amino Transferase 27 U/L (5-37); Estimated Glomerular Filt Rate > 60
[2024-10-30 13:54] LABS: Band Neutrophils Percent 0 % (3-5); Basophils Abs Manual 0.1 X10*3/uL (0.0-0.2); Basophils Percent Manual 2 % (0-2); Eosinophils Absolute Manual 0.2 X10*3/uL (0.0-0.4); Eosinophils Percent Manual 6 % (0-4); Lymphocytes Absolute Manual 1.9 X10*3/uL (1.2-4.9); Lymphocytes Percent Manual 46 % (20-40); Monocytes Absolute Manual 0.9 X10*3/uL (0.1-1.2); Monocytes Percent Manual 21 % (2-11); Neutrophils Absolute Manual 1.0 X10*3/uL (2.0-8.3); Neutrophils Percent Manual 25 % (45-73)
[2024-10-30 13:55] LABS: RBC Morphology NORMAL
== END 2024-10-30 08:41 | disposition home or self-care (01) ==
LOC: HO.HKASLDS 08:40
PROVIDERS: Visit Provider Internal Medicine Rheumatology
DX: J84.9 Interstitial pulmonary disease, unspecified (principal); M06.9 Rheumatoid arthritis, unspecified
CPT/HCPCS: 36415; 82565; 84450; 84460; 85007; 85027; 85652; 86140

== ENCOUNTER 2024-11-13 09:48 | Outpatient (AMB) | payer MEDICARE, SELFPAY ==
--- OUTSIDE RECORDS SUMMARY | 2024-11-08 23:59 | XMS_ITS | Continuity of Care Document ---
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 Name Role Phone Dylan VANESSA, Murray Primary Care Physician [phone] Encounter [facility] Date(s): 10/09/24 - 11/08/24 [facility] [address] Attending Physician: Brent Herrmann Admitting Physician: Brent Herrmann Referring Physician: Brent Herrmann Encounter Type: Triage Allergies, Adverse Reactions, Alerts No Known Allergies Immunizations Given and Recorded Vaccine Date Status Refusal Reason SARS-CoV-2(COVID-19)mRNA-LNP vac([id number]) 02/26/23 Recorded RSV vaccine preF3, recombinant 12/18/22 Recorded influenza virus vaccine, inactivated 12/18/22 Zachary rded influenza virus vaccine, inactivated 12/05/21 Zachary rded influenza virus vaccine, inactivated 12/07/20 Zachary rded influenza virus vaccine, inactivated 03/11/18 Zachary rded influenza virus vaccine, inactivated 01/05/17 Zachary rded influenza virus vaccine, inactivated 12/23/14 Zachary rded [id number] 12y+ bivalent booster vax 12/05/21 Recorded SARS-CoV-2 [...] 3:24:00 PM EDT, Route to Pharmacy Electronically, [id number], Partial fill upon patientrequest if the prescription is for a schedule II opioid drug., 180, cm, 09/26/23 13:59:00 EDT, Height, 97, kg, 06/18/23 8:07:00 EDT, Dry Weight Start Date: 09/26/23 Status: Ordered Quantity: 90.0 Unit: tablet Repeat number: 1 calcium carbonate 600 mg oral tablet 1 tablet = 600 mg, By Mouth, Daily, 0 Refills, Maintenance, 06/18/23 8:19:00 AM EDT, Partial fill upon patient request if the prescription is for a schedule II opioid drug. Start Date: 06/18/23 Status: Ordered Repeat number: 1 carvedilol 25 mg oral tablet See Instructions, 1 tablet By Mouth 2 times a day, # 60 tablet, Refills 5, Tot. Refills 5, Maintenance, 07/07/24 8:48:00 AM EDT, Instructions Replace Required Details, Route to Pharmacy Electronically, [facility], discontinue metoprolol ER 200mg daily, 180.34, cm, 07/07/24 8:36:00 EDT, Height, 97.5, kg, 02/01/24 18:06:00 EST, Dry Weight Start Date: 07/07/24 Status: Ordered Quantity: 60.0 Unit: tablet Repeat number: 6 Claritin 10 mg oral tablet 1 tablet = 10 mg, By Mouth, Daily, 0 Refills, Maintenance, 11/18/12 7:31:01 AM EDT Start Date: 11/18/12 Status: Ordered Repeat number: 1 Entresto 97 mg-103 mg oral tablet See Instructions, 1 tablet By Mouth 2 times a day, # 180 tablet, 5 Refills, Maintenance, 05/28/24 2:52:00 PM EST, Tablet, [facility], dose increase, 1 tablet By Mouth 2 times a day, 180.34, cm, 05/28/24 14:22:00 EST, Height, 97.5, kg, 02/01/24 18:06:00 EST, Dry Weight Start Date: 05/28/24 Status: Ordered Quantity: 180.0 Unit: tablet Repeat number: 6 Farxiga 10 mg oral tablet See Instructions, 1 tablet By Mouth Daily, brand name per KATT tsai, # 90 tablet, 2 Refills, Maintenance, 05/28/24 2:51:00 PM EST, Tablet, [facility], Partial fill upon patient request if the prescription is for a schedule II opioid drug., 180.34, cm, 05/28/24 14:22:00 EST, Height, 97.5, kg, 02/01/24 18:06:00 EST, Dry Weight Start Date: 05/28/24 Status: Ordered Quantity: 90.0 Unit: tablet Repeat number: 3 Flomax 0.4 mg oral capsule 0.4 mg, 1, capsule, By Mouth, Daily, # 30 capsule, Refills 0, Maintenance, 02/27/19 9:35:15 AM EST Start Date: 02/27/19 Status: Ordered Quantity: 30.0 Unit: capsule Repeat number: 1 Flonase 50 mcg/inh nasal spray 2 sprays, Daily, 0 Refills, Maintenance, 07/10/19 1:22:00 PM EDT Start Date: 07/10/19 Status: Ordered Repeat number: 1 Lasix 20 mg oral tablet 20 mg, 1, tablet, By Mouth, Daily, # 90 tablet, Refills 3, Tot. Refills 3, Maintenance, 05/20/24 2:10:00 PM EST, Route to Pharmacy Electronically, [facility], Partial fill upon patient request if the prescription is for a schedule II opioid drug., 180.34, cm, 05/07/24 15:00:00 EST, Height, 97.5, kg, 02/01/24 18:06:00 EST, Dry Weight Start Date: 05/20/24 Status: Ordered Quantity: 90.0 Unit: tablet Repeat number: 4 Ofev 100 mg oral capsule 1 capsule, By Mouth, Every 12 hours, WITH FOOD., # 60 capsule, 2 Refills, Maintenance, 09/09/24 2:54:00 PM EDT, [facility], 180.34, cm, 09/01/24 8:32:00 EDT, Height, 97.5, kg, 02/01/24 18:06:00 EST, Dry Weight Start Date: 09/09/24 Status: Ordered Quantity: 60.0 Unit: capsule Repeat number: 1 pantoprazole 40 mg oral delayed release tablet 1 tablet = 40 mg, By Mouth, Daily, # 90 tablet, 3 Refills, Maintenance, 10/14/24 5:50:00 AM EDT, EC Tablet, 180.34, cm, 10/09/24 9:31:00 EDT, Height, 97.5, kg, 02/01/24 18:06:00 EST, Dry Weight Start Date: 10/14/24 Stop Date: 10/09/25 Status: Ordered Quantity: 90.0 Unit: tablet Repeat number: 4 simvastatin 40 mg oral tablet 40 mg, 1, tablet, By Mouth, Daily at bedtime, # 90 tablet, Refills 5, Tot. Refills 5, Maintenance, 07/09/24 4:06:00 PM EDT, Route to Pharmacy Electronically, [facility], Partial fill upon patient request if the prescription is for a schedule II opioid drug., 180.34, cm, 07/09/24 15:44:00 EDT, Height, 97.5, kg, 02/01/24 18:06:00 EST, Dry Weight Start Date: 07/09/24 Status: Ordered Quantity: 90.0 Unit: tablet Repeat number: 6 spironolactone 25 mg oral tablet 25 mg, 1, tablet, By Mouth, Daily, # 90 tablet, Refills 4, Tot. Refills 4, Maintenance, 05/20/24 2:10:00 PM EST, Route to Pharmacy Electronically, [facility], Partial fill upon patient request if the prescription is for a schedule II opioid drug., 180.34, cm, 05/07/24 15:00:00 EST, Height, 97.5, kg, 02/01/24 18:06:00 EST, Dry Weight Start Date: 05/20/24 Status: Ordered Quantity: 90.0 Unit: tablet Repeat number: 5 Truxima Truxima, 0 Refills, Maintenance, Infusion, 04/18/22 [...] to Streptococcus Confirmed Active Transaminitis Confirmed Active Hemorrhoids Confirmed Active Claudication in peripheral vascular disease [...] MRI Safety Implantable Status Assigning Authority Unknown [id number] Unknown 11/23/18 Unknown Unknown Active Unknown Radiology * Event Display: CT Scan Chest, Non- Authored Date: * Event Display: CT Scan Chest, Non- Authored Date: Patient Care team information Care Team Personnel Name: Shona Trejo NP Position: [facility] PCO Associate Professional Member Role: Primary Care Nurse Address: [address] [place] [phone]- Telecom: Name: Alma Delia Bradshaw RN Position: [facility] AMB Nurse Member Role: Primary Care Nurse Name: Irasema Puckett RN Position: [facility] RN Member Role: Primary Care Nurse Name: Greg Putnam RN Position: [facility] ED RN W/OE and Tasks Member Role: Primary Care Nurse Name: Kerrie Francis RN Position: [facility] RN Member Role: Primary Care Nurse Name: Jose Nowak RN Position: [facility] Babak RN Member Role: Primary Care Nurse Name: Murray Richardson MD Position: [facility] Outreach Member Role: PCP Address: [address] [place] [address], [address] [place] [phone]- Telecom: Name: Nilay Arvizu RN Position: [facility] RN Member Role: Primary Care Nurse Care Team Related Persons Name: BABAK PACHECO Insurance Providers Guarantor name: JOSEPHINE JUNIOR [facility] Information #: 1 Payer: [employer] ADV PPO Payer Identifier: NA Member Number: [id number] Group Number: [id number] Subscriber Identifier: [id number] Relationship to Subscriber: self Coverage Type: Medicare PPO Coverage Verification Date: NA Telecom: DAJUAN Address: NA
--- NOTE | 2024-11-13 09:49 | MHC.OFFVIS ---
Vital Signs 11/13/24 09:50 Height 5 ft 11 in Weight 212 lb 4.882 oz BMI 29.6 BP 104/78 Blood Pressure Location Rt brachial Position Sitting Pulse 77 Pulse Source Pulse Oximeter Pulse Oximetry (%) 99 Oxygen Delivery Method Room Air Intake Visit Reasons: 3 months Intake Note: Patient presents follow up RA. Accompanied by: Self / Same As Patient Allergies sulfasalazine Allergy (Mild, Verified 08/06/24 10:10) Unknown HPI HPI 3 months: Details: He is doing well. No recent infections. He has seasonal allergies and intermittently has stuffiness. No morning stiffness. No foot pain with walking. No joint swelling. Denies dyspnea. He recently had cataract surgery of his right eye with success. He is planning 2nd cataract surgery with Dr. Parkinson. He saw pulmonologists in September who is planning on possibly ordering a CT chest. PFTs were done. He will be following up with pulmonologists in 6 months. He received a bill for June infusion of Truxima. [facility] Surgical History History of mitral valve repair Family History Mother Colon cancer Rheumatoid arthritis Father Heart attack Social History Alcohol intake: current Alcohol intake frequency: holidays/special occasions only Patient Tobacco Use Status: Never used Tobacco Physical Exam Vital Signs: Last Vital Signs Pulse 77 11/13/24 09:50 BP 104/78 11/13/24 09:50 Pulse Ox 99 11/13/24 09:50 Oxygen Delivery Method Room Air 11/13/24 09:50 BMI result Body Mass Index 29.6 Const Other: General: Comfortable CVS: RRR Respiratory: Bibasilar inspiratory crackles. Decreased breath sounds Skin: No lesions seen MSK: No tenderness of any joints. Normal range of motion of upper extremities and lower extremities. No synovitis. Assessment & Plan Assessment & Plan (1) Rheumatoid arthritis in remission: Comment: Seropositive (CCP and RF). In remission on Truxima every 4 months. He has had mild leukopenia on recent labs. I will be repeating labs prior to his next infusion. He received a co-payment for trach see my June 2024, which is not affordable for him if he continues to receive 1. We discussed the change in his prior authorization with Truxima medicine being received from [facility], which will hopefully resolve billing of copayment with full cost of infusion being covered by his insurance. Rheumatology history: Contraindication to methotrexate and leflunomide due to interstitial lung disease. Failed hydroxychloroquine 05/17/2020 to 02/2022 and Mycophenolate mofetil 04/2021 to 09/2021. Low-dose prednisone benefits inflammatory arthritis, fatigue and dyspnea. Truxima 1g Day 0 and Day 14 started 09/2021 initially every 6 months then increased frequency to every 4 months for control of inflammatory arthritis. Truxima biosimilar to Rituximab is indicated for rheumatoid arthritis and interstitial lung disease associated with rheumatoid arthritis. Code(s): M06.9 - Rheumatoid arthritis, unspecified Category: Medical Plan: Continue Truxima 1g on day 0 and 14 every 4 months. Labs for disease and drug monitoring on high-risk medication up-to-date 10/2024. He will obtain labs for drug monitoring on high-risk medication 1 week prior to Truxima infusions. Drug monitoring on Truxima is due every 3-4 months. RTC 3 months (2) ILD (interstitial lung disease): Comment: On OFEV prescribed by Dr. Francisco and Andrea. Subhash. Code(s): J84.9 - Interstitial pulmonary disease, unspecified Category: Medical Plan: Continue Truxima 1g on day 0 and 14 every 4 months Follow-up with pulmologist Dr. Francisco [facility] for ILD monitoring/Ofev management every 6 months. Requesting last clinic note and PFTs. Plan . Orders: Orders Complete Blood Count Auto Diff 4 Months Z79.899 - Other half-way (current) drug therapy Alanine Aminotransferase 4 Months Z79.899 - Other medical terminologist (current) drug therapy Aspartate Amino Transferase 4 Months Z79.899 - Other medical terminologist (current) drug therapy Creatinine 4 Months Z79.899 - Other medical terminologist (current) drug therapy Erythrocyte Sedimentation Rate 4 Months Z79.899 - Other medical terminologist (current) drug therapy C Reactive Protein 4 Months Z79.899 - Other half-way (current) drug therapy Coding Level of Care Code Est Pt Level 4 (99457) Complex EM visit Add On G2211 Diagnoses Rheumatoid arthritis in remission M06.9 ILD (interstitial lung disease) J84.9
[2024-11-13 09:50] VITALS: BP 104/78; PULSE 77; O2SAT 99; BMI 29.6
--- OUTSIDE RECORDS SUMMARY | 2024-11-13 11:08 | XMS_ITS | Patient Health Record ---
[facility] Organization [facility] Address 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 Role Phone Dylan VANESSA, Murray Primary Care Provider Unavail able Doni Mercer Unavailable [phone] Allergies No Known Allergies Reason For Referral [...] Treatment Pending Test Test Name Order Date [id number] Destruction, -05/13/2020 Insurance Providers Payer Name Payer Address Payer Phone Subscriber Number Group Number Insured Name Patient Relationship to Insured Coverage Start Date Coverage End Date [employer]vantage [address] [place], [place] [address] [phone] [id number] Shahram Jean-Baptiste Self - patient is the insured Medical (General) History Medical History History ICD Code Broken bones Diverticulosis High blood pressure Lung disease Numbness Poor circulation Measles Mumps Chicken pox septicemia CAD Surgical History Surgery Date(Month/Year) neck surgery 1980 Stent placement 2012 vasectomy 1986 deviated septum repair 1976
== END 2024-11-13 10:33 | disposition home or self-care (01) ==
LOC: HO.RHES 09:48
PROVIDERS: PCP Internal Medicine; Visit Provider Internal Medicine Rheumatology
DX: M06.9 Rheumatoid arthritis, unspecified (principal); J84.9 Interstitial pulmonary disease, unspecified
CPT/HCPCS: 99214; G2211

== ENCOUNTER → 2024-11-13 09:48 | Outpatient (BNVA) | payer MEDICARE, SELFPAY | PROVIDERS: PCP Internal Medicine; Visit Provider Internal Medicine Rheumatology | DX: M06.9 Rheumatoid arthritis, unspecified (principal); J84.9 Interstitial pulmonary disease, unspecified; Z79.899 Other long term (current) drug therapy | CPT/HCPCS: 99212 ==

== ENCOUNTER 2025-02-17 10:13 | Outpatient (REF) | payer MEDICARE, SELFPAY ==
--- OUTSIDE RECORDS SUMMARY | 2025-02-17 12:30 | XMS_ITS | Patient Health Record ---
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 Role Phone Dylan VANESSA, Murray Primary Care Provider Unavail able Doni Mercer Unavailable [phone] Allergies No Known Allergies Reason For Referral [...] W/U Status Risk Notes Problem Plantar wart ([id number]) Plantar wart (B07.0) Active confirmed Plan Of Treatment Pending Test Test Name Order Date [id number] Destruction, 1-14 05/13/2020 Insurance Providers Payer Name Payer Address Payer Phone Subscriber Number Group Number Insured Name Patient Relationship to Insured Coverage Start Date Coverage End Date [employer] Medicare Advantage [address] [facility] [place] [address] [id number] Shahram Jean-Baptiste Self - patient is the insured Medical (General) History Medical History History ICD Code Broken bones Diverticulosis High blood pressure Lung disease Numbness Poor circulation Measles Mumps Chicken pox septicemia CAD Surgical History Surgery Date(Month/Year) neck surgery 1980 Stent placement 2012 vasectomy 1986 deviated septum repair 1976
[2025-02-17 14:07] LABS: MANUAL DIFF FLAG NO
[2025-02-17 14:15] LABS: Hematocrit 50.9 % (42.0-52.0); Hemoglobin 16.5 g/dl (14.0-18.0); Imm Gran Abs Auto 0.02 X10*3/uL (0.00-0.03); Imm Gran Pct Auto 0.3 % (0.0-0.4); Lymphocytes Absolute Auto 1.4 X10*3/uL (1.2-4.9); Mean Corpuscular HGB Conc 32.4 g/dl (31.0-36.0); Mean Corpuscular Hemoglobin 30.2 pg (27.0-33.0); Mean Corpuscular Volume 93.1 fL (80.0-98.0); NRBC Abs Auto 0.000 X10*3/uL (0.0-0.012); NRBC Pct Auto 0.0 /100WBC (0.0-0.2); Platelet Count 267 X10*3/uL (160-400); Red Blood Count 5.47 X10*6/uL (4.60-5.80); White Blood Count 7.8 X10*3/uL (4.8-10.8)
[2025-02-17 19:01] LABS: Alanine Aminotransferase 26 U/L (0-40); Aspartate Amino Transferase 24 U/L (5-37); Estimated Glomerular Filt Rate > 60
== END 2025-02-17 10:14 | disposition home or self-care (01) ==
LOC: HO.HKASLDS 10:13
PROVIDERS: PCP Internal Medicine; Visit Provider Internal Medicine Rheumatology
DX: Z79.899 Other long term (current) drug therapy (principal)
CPT/HCPCS: 36415; 82565; 84450; 84460; 85025; 85652; 86140